=== PATIENT | male | born 1990 | race Caucasian/White ===

== ENCOUNTER 2021-11-17 21:52 | Emergency (ER) | payer BC ==
[~2021-11-17] VITALS: Ht 185.4 cm; Wt 89.3 kg
[~2021-11-17 21:52] MED LIST: AUGM500T34 PO; CITA10TA5 PO; CREAPOW PO; IBUP1TAB7 PO; MOTR200T44 PO; PERC5TAB12 PO; PROTPOW11 PO
[2021-11-17 21:56] VITALS: BP 152/88
== END 2021-11-17 23:26 | disposition home or self-care (01) ==
LOC: M ED 21:52
DX: F10.120 Alcohol abuse with intoxication, uncomplicated (principal)

== ENCOUNTER 2021-12-11 15:00 | Outpatient (RCR) | payer BC ==
[~2021-12-11 15:00] MED LIST changes: -CITA10TA5 PO; +CITA10TA7 PO
== END 2021-12-17 ==
LOC: M OUTALCOH 15:00
PROVIDERS: ATTEND Psychiatry & Neurology Psychiatry
DX: F10.10 Alcohol abuse, uncomplicated (principal)

== ENCOUNTER 2022-01-08 14:58 | Outpatient (RCR) | payer BC | END 2022-01-14 | LOC: M OUTALCOH 14:58 | PROVIDERS: ATTEND Psychiatry & Neurology Psychiatry | DX: F10.10 Alcohol abuse, uncomplicated (principal) ==

== ENCOUNTER 2022-02-13 09:56 | Outpatient (RCR) | payer BC | END 2022-02-14 | LOC: M OUTALCOH 09:56 | PROVIDERS: ATTEND Psychiatry & Neurology Psychiatry | DX: F10.10 Alcohol abuse, uncomplicated (principal) ==

== ENCOUNTER → 2022-03-01 | Outpatient (CLI) | payer BC | LOC: M SOG 15:06 | PROVIDERS: ATTEND Orthopaedic Surgery | DX: M25.511 Pain in right shoulder (principal) ==

== ENCOUNTER 2022-03-14 09:58 | Outpatient (RCR) | payer BC | END 2022-03-16 | LOC: M OUTALCOH 09:58 | PROVIDERS: ATTEND Psychiatry & Neurology Psychiatry | DX: F10.10 Alcohol abuse, uncomplicated (principal) ==

== ENCOUNTER → 2022-04-04 | Outpatient (CLI) | payer OTHER | LOC: M PLAIMG 08:41 | PROVIDERS: ATTEND Orthopaedic Surgery | DX: M67.813 Other specified disorders of tendon, right shoulder (principal) ==

== ENCOUNTER → 2022-12-17 | Outpatient (REF) | payer BC ==
[2022-12-17 17:27] LABS: INFLUENZA A AMPLIFICATION NEGATIVE (NEGATIVE); INFLUENZA B AMPLIFICATION NEGATIVE (NEGATIVE)
== END ==
LOC: M LAB REF 16:13
PROVIDERS: ATTEND Nurse Practitioner Adult Health
DX: J02.9 Acute pharyngitis, unspecified (principal)